=== PATIENT | female | born 1975 | race Caucasian/White ===

== ENCOUNTER 2019-05-21 17:38 | Emergency (ER) | payer OTHER ==
[2019-05-21] MEDS ORDERED: ACETAMINOPHEN 500 MG TAB ONE (18:21)
--- NOTE | 2019-05-21 18:28 | RAD REPORT ---
EXAM DESCRIPTION: RAD - Chest Single View - 05/21/2019 6:22 pm CLINICAL HISTORY: Chest pain COMPARISON: September 2010 TECHNIQUE: AP portable chest image was obtained 1606 hours . FINDINGS: Lung volumes are low. No peripheral mass or consolidation. Low lung volumes accentuates in terstitial pattern. No significant failure or volume overload. Heart and vasculature are normal. No m easurable pleural effusion and no pneumothorax. No acute bony abnormality seen. No acute aortic findi ngs suspected. IMPRESSION: No focal lung parenchymal process. Baseline interstitial pattern is accentuated by shallow inspiration potentially masking early interst itial edema or infiltrate.
[2019-05-21 18:45] LABS: Absolute Lymphocytes (CBC) 2.7 K/uL (0.7-4.9); Basophils % 0.4 % (0-1.3); Hematocrit 36.8 % (36.0-45.0); Lymphocytes % 38.7 % (15.3-44.8); MPV 8.8 fL (7.6-11.3); RBC Red Blood Cell Count 4.06 M/uL (3.86-4.86)
[2019-05-21 18:53] LABS: Protime INR 1.01
[2019-05-21 19:08] LABS: ALT/SGPT 17 U/L (12-78); AST/SGOT 12 U/L (15-37); Albumin 3.8 g/dL (3.4-5.0); Alkaline Phosphatase 73 U/L (45-117); BUN Blood Urea Nitrogen 13 mg/dL (7-18); Bicarbonate 27 mmol/L (21-32); Bilirubin Direct 0.1 mg/dL (0-0.2); Bilirubin Total 0.3 mg/dL (0.2-1.0); Glucose Level 103 mg/dL (74-106); Magnesium 2.2 mg/dL (1.8-2.4); NT PRO-BNP 34 pg/mL (<125); Potassium 3.8 mmol/L (3.5-5.1); Sodium Level 140 mmol/L (136-145); Troponin (Emerg Dept Use Only) < 0.02 ng/mL (0.0-0.045)
--- NOTE | 2019-05-21 21:04 | EDPHYS ---
Physician Documentation [facility] Name: Leonila Nur Age: 43 yrs Sex: Female : 1975 Arrival Date: 05/21/2019 Time: 17:39 Bed 18 Private MD: ED Physician Familia Phillips HPI: 05/21 18:55 This 43 yrs old Female presents to ER via Ambulatory with complaints of Chest ma2 Pain > 30 y/o. 18:55 The patient or guardian reports chest pain that is located primarily in the substernal ma2 area. Onset: gradually, 1 hour(s) ago. Associated signs and symptoms: Pertinent positives: chest pressure , Pertinent negatives: None. diaphoresis, headache, lightheadedness, nausea, shortness of breath, syncope, vomiting. The chest pain is described as aching. Severity of pain: At its worst the pain was moderate in the emergency department the pain is unchanged. The patient has not experienced similar symptoms in the past. ANESTHESIOLOGIST/PHYSICIAN: 21:14 LMP N/A - Irregular menses jd3 Historical: - Allergies: 17:48 No Known Allergies; la1 - Home Meds: 17:48 carvedilol 3.125 mg oral tab 1 tab 2 times per day [Active]; la1 - PMHx: 17:48 cardiomyopathy; la1 - PSHx: 17:48 ; la1 - Immunization history:: Adult Immunizations up to date. - Social history:: Smoking status: Patient/guardian denies using tobacco, Patient/guardian denies using alcohol, street drugs, The patient lives with family. - Ebola Screening: : No symptoms or risks identified at this time. - Family history:: not pertinent. ROS: 18:55 Constitutional: Negative for fever, chills, and weight loss, Eyes: Negative for injury, ma2 pain, redness, and discharge, ENT: Negative for injury, pain, and discharge, Neck: Negative for injury, pain, and swelling, Cardiovascular: Negative for chest pain, palpitations, and edema, Respiratory: Negative for shortness of breath, cough, wheezing, and pleuritic chest pain, Abdomen/GI: Negative for abdominal pain, nausea, diarrhea, and constipation, MS/Extremity: Negative for injury and deformity, Skin: Negative for injury, rash, and discoloration, Neuro: Negative for headache, weakness, numbness, tingling, and seizure, Psych: Negative for depression, anxiety, suicide ideation, homicidal ideation, and hallucinations. 18:55 All other systems are negative. Exam: 18:55 Constitutional: This is a well developed, well nourished patient who is awake, alert, ma2 and in no acute distress. Head/Face: Normocephalic, atraumatic. Eyes: Pupils equal round and reactive to light, extra-ocular motions intact. Lids and lashes normal. Conjunctiva and sclera are non-icteric and not injected. Cornea within normal limits. Periorbital areas with no swelling, redness, or edema. ENT: Nares patent. No nasal discharge, no septal abnormalities noted. Tympanic membranes are normal and external auditory canals are clear. Oropharynx with no redness, swelling, or masses, exudates, or evidence of obstruction, uvula midline. Mucous membranes moist. Neck: Trachea midline, no thyromegaly or masses palpated, and no cervical lymphadenopathy. Supple, full range of motion without nuchal rigidity, or vertebral point tenderness. No Meningismus. Chest/axilla: Normal chest wall appearance and motion. Nontender with no deformity. No lesions are appreciated. Cardiovascular: Regular rate and rhythm with a normal S1 and S2. No gallops, murmurs, or rubs. Normal PMI, no JVD. No pulse deficits. Respiratory: Lungs have equal breath sounds bilaterally, clear to auscultation and percussion. No rales, rhonchi or wheezes noted. No increased work of breathing, no retractions or nasal flaring. Abdomen/GI: Soft, non-tender, with normal bowel sounds. No distension or tympany. No guarding or rebound. No evidence of tenderness throughout. Vital Signs: 17:48 BP 150 / 87; Pulse 79; Resp 16; Temp 98.7; Pulse Ox 100% on R/A; Weight 84.82 kg; la1 Height 5 ft. 3 in. (160.02 cm); 20:41 BP 109 / 67; Pulse 72; Resp 17 S; Pulse Ox 99% on R/A; jd3 17:48 Body Mass Index 33.13 (84.82 kg, 160.02 cm) la1 MDM: 17:54 Patient medically screened. ma2 18:55 Differential diagnosis: abnormal EKG, anxiety, coronary artery disease chest wall pain, ma2 costochondritis, gastroesophageal reflux disease (GERD), pleurisy. 21:01 HEART Score: History: Slightly Suspicious (0), ECG: Age: < or = 45 years (0), Risk ma2 Factors: No Risk Factors Known (0), Troponin: < or = 1 x Normal Limit (0). Data reviewed: vital signs, nurses notes. ED course: LBB on EKG old, had related cardiomyopathy in past . 05/21 17:54 Order name: Basic Metabolic Panel; Complete Time: 19:42 ma2 05/21 17:54 Order name: CBC with Diff; Complete Time: 19:42 ma2 05/21 17:54 Order name: LFT's; Complete Time: 19:42 ma2 05/21 17:54 Order name: Magnesium; Complete Time: 19:42 ma2 05/21 17:54 Order name: NT PRO-BNP; Complete Time: 19:42 ma2 05/21 17:54 Order name: PT-INR; Complete Time: 19:42 ma2 05/21 17:54 Order name: Troponin (emerg Dept Use Only); Complete Time: 19:42 ma2 05/21 17:54 Order name: XRAY Chest (1 view); Complete Time: 19:42 ma2 05/21 17:54 Order name: EKG; Complete Time: 17:55 ma2 05/21 17:54 Order name: Cardiac monitoring; Complete Time: 18:00 ma2 05/21 17:54 Order name: EKG - Nurse/Tech; Complete Time: 18:00 ma2 05/21 17:54 Order name: IV Saline Lock; Complete Time: 19:04 ma2 05/21 19:55 Order name: Troponin (emerg Dept Use Only); Complete Time: 20:40 jd3 05/21 17:54 Order name: Labs collected and sent; Complete Time: 19:04 ma2 05/21 17:54 Order name: O2 Per Protocol; Complete Time: 18:00 ma2 05/21 17:54 Order name: O2 Sat Monitoring; Complete Time: 18:00 ma2 Administered Medications: 18:23 Drug: Tylenol 500 mg Route: PO; iw 19:20 Follow up: Response: No adverse reaction jd3 Disposition: 05/21/19 21:03 Discharged to Home. Impression: Chest pain, unspecified. - Condition is Stable. - Discharge Instructions: Nonspecific Chest Pain. - Prescriptions for Tylenol- Codeine #3 300-30 mg Oral Tablet - take 2 tablet by ORAL route every 6 hours As needed; 30 tablet. - Family Work Release, Medication Reconciliation Form, Thank You Letter, Antibiotic Education, Prescription Opioid Use form. - Follow up: Private Physician; When: Tomorrow; Reason: Continuance of care. Signatures: Dispatcher [employer] EDHeather Thompson RN RN Kodi Medrano RN RN la1 Clinton Boyd RN RN jd3 Familia Phillips MD MD ma2 Corrections: (The following items were deleted from the chart) 21:14 21:03 05/21/2019 21:03 Discharged to Home. Impression: Chest pain, unspecified. jd3 Condition is Stable. Forms are Medication Reconciliation Form, Thank You Letter, Antibiotic Education, Prescription Opioid Use. Follow up: Private Physician; When: Tomorrow; Reason: Continuance of care. ma2
--- NOTE | 2019-05-21 21:04 | ER ---
Nurse's Notes [facility] [place] Name: Leonila Nur Age: 43 yrs Sex: Female : 1975 Arrival Date: 05/21/2019 Time: 17:39 Bed 18 Private MD: Diagnosis: Chest pain, unspecified Presentation: 05/21 17:46 Presenting complaint: Patient states: I have been feeling off for about a month. i have la1 a hx of cardiomyopathy and see Dr. Romero and have been having palpitations. On my way here I had chest pain right in the middle of my chest and started feeling nauseous and sweating even though it wasn't hot. Transition of care: patient was not received from another setting of care. Onset of symptoms was May 21, 2019. Risk Assessment: Do you want to hurt yourself or someone else? Patient reports no desire to harm self or others. Initial Sepsis Screen: Does the patient meet any 2 criteria? No. Patient's initial sepsis screen is negative. Does the patient have a suspected source of infection? No. Patient's initial sepsis screen is negative. Care prior to arrival: None. 17:46 Method Of Arrival: Ambulatory la1 17:46 Acuity: VIKI 2 la1 ELECTRICAL SYSTEMS ENGINEER: 21:14 LMP N/A - Irregular menses jd3 Historical: - Allergies: 17:48 No Known Allergies; la1 - Home Meds: 17:48 carvedilol 3.125 mg oral tab 1 tab 2 times per day [Active]; la1 - PMHx: 17:48 cardiomyopathy; la1 - PSHx: 17:48 ; la1 - Immunization history:: Adult Immunizations up to date. - Social history:: Smoking status: Patient/guardian denies using tobacco, Patient/guardian denies using alcohol, street drugs, The patient lives with family. - Ebola Screening: : No symptoms or risks identified at this time. - Family history:: not pertinent. Screenin:00 Abuse screen: Denies threats or abuse. Denies injuries from another. Nutritional sg screening: No deficits noted. Tuberculosis screening: No symptoms or risk factors identified. Never had TB. Fall Risk None identified. Assessment: 18:00 Reassessment: Patient appears in no apparent distress at this time. General: Appears in sg no apparent distress. well groomed, well developed, well nourished, Behavior is calm, cooperative, appropriate for age. Pain: Complains of pain in chest Pain does not radiate. Quality of pain is described as aching, sharp, intermittent. Neuro: Level of Consciousness is awake, alert, obeys commands, Oriented to person, place, time, situation, Vehicle Maintenance Technician are equal bilaterally Moves all extremities. Full function Gait is steady, Speech is normal, Facial symmetry appears normal. Neuro: Reports headache in entire frontal area. Cardiovascular: Capillary refill is brisk in bilateral fingers Patient's skin is warm and dry. Chest pain is described as vague, quality is pressure. Respiratory: Airway is patent Respiratory effort is even, unlabored, Respiratory pattern is regular, symmetrical, Denies shortness of breath labored breathing. GI: No signs and/or symptoms were reported involving the gastrointestinal system. : No signs and/or symptoms were reported regarding the genitourinary system. EENT: No signs and/or symptoms were reported regarding the EENT system. Derm: Skin is pink, warm \T\ dry. Musculoskeletal: Circulation, motion, and sensation intact. Range of motion: intact in all extremities. 19:47 General: Appears in no apparent distress. comfortable, well groomed, Behavior is calm, jd3 cooperative, appropriate for age. Pain: Complains of pain in chest Quality of pain is described as pressure, Pain began suddenly. Neuro: Level of Consciousness is awake, alert, obeys commands, Oriented to person, place, time, situation. Cardiovascular: Capillary refill < 3 seconds Patient's skin is warm and dry. Respiratory: Airway is patent Respiratory effort is even, unlabored, Respiratory pattern is regular, symmetrical, Denies cough, shortness of breath labored breathing. GI: No signs and/or symptoms were reported involving the gastrointestinal system. : No signs and/or symptoms were reported regarding the genitourinary system. EENT: No signs and/or symptoms were reported regarding the EENT system. Derm: Skin is intact, Skin is dry, Skin is normal, Skin temperature is warm. Musculoskeletal: Circulation, motion, and sensation intact. Range of motion: intact in all extremities. 20:41 Reassessment: Patient appears in no apparent distress at this time. Patient and/or jd3 family updated on plan of care and expected duration. Pain level reassessed. Patient is alert, oriented x 3, equal unlabored respirations, skin warm/dry/pink. Patient states feeling better. 21:14 Reassessment: Patient appears in no apparent distress at this time. Patient and/or jd3 family updated on plan of care and expected duration. Pain level reassessed. Patient is alert, oriented x 3, equal unlabored respirations, skin warm/dry/pink. reported understanding of discharge instructions. Vital Signs: 17:48 BP 150 / 87; Pulse 79; Resp 16; Temp 98.7; Pulse Ox 100% on R/A; Weight 84.82 kg; la1 Height 5 ft. 3 in. (160.02 cm); 20:41 BP 109 / 67; Pulse 72; Resp 17 S; Pulse Ox 99% on R/A; jd3 17:48 Body Mass Index 33.13 (84.82 kg, 160.02 cm) la1 ED Course: 17:39 Patient arrived in ED. am2 17:47 Triage completed. la1 17:48 Arm band placed on left wrist. la1 17:54 Familia Phillips MD is Attending Physician. ma2 18:00 EKG done, by ED staff, reviewed by Familia Phillips MD. iw 18:23 XRAY Chest (1 view) In Process Unspecified. EDMS 18:30 No provider procedures requiring assistance completed. Initial lab(s) drawn, by me, sg sent to lab. Inserted saline lock: 22 gauge in right antecubital area, using aseptic technique. Blood collected. Patient maintains SpO2 saturation greater than 95% on room air. 18:35 Grey Billingsley, RN is Primary Nurse. sg 19:00 bus driver/monitor on. Pulse ox on. NIBP on. jd3 19:49 Patient has correct armband on for positive identification. Placed in gown. Bed in low jd3 position. Call light in reach. Side rails up X 1. Adult w/ patient. 20:02 Troponin (emerg Dept Use Only) Sent. jd3 21:13 IV discontinued, intact, bleeding controlled, No redness/swelling at site. Pressure jd3 dressing applied. Administered Medications: 18:23 Drug: Tylenol 500 mg Route: PO; iw 19:20 Follow up: Response: No adverse reaction jd3 Outcome: 21:03 Discharge ordered by . ma2 21:13 Discharged to home ambulatory, with family. jd3 21:13 Condition: stable 21:13 Discharge instructions given to patient, family, Instructed on discharge instructions, follow up and referral plans. medication usage, Demonstrated understanding of instructions, follow-up care, medications, Prescriptions given X 1. 21:14 Patient left the ED. jd3 Signatures: Dispatcher [employer] EDMS Grey Billingsley RN RN sg Williams, Irene, RN RN iw Attema, Lee, RN RN la1 Moreno, Amanda am2 Davies, Jonathon, RN RN jd3 Alzahri, Mohammad, MD MD ma2
[2019-05-21 22:57] VITALS: BP 109/67; O2SAT 99
[2019-05-21 22:58] VITALS: TEMP 98.7
--- NOTE | 2019-05-22 11:03 | EKG ---
Test Date: 2019-05-21 Test Time: 18:00:29 Food Cashier: SWG MEASUREMENT RESULTS: Intervals: Rate: 67 MT: 154 QRSD: 136 QT: 432 QTc: 456 [place]: P: 38 MT: 154 QRS: 13 T: 20 INTERPRETIVE STATEMENTS: Normal sinus rhythm Left bundle branch block Abnormal ECG Compared to ECG 09/26/2010 13:08:12 Left bundle-branch block now present Intraventricular conduction delay no longer present ST (T wave) deviation no longer present Electronically Signed On 05-22-19 11:02:43 CDT by Yunior Romero
== END 2019-05-21 21:14 | disposition home or self-care (01) ==
LOC: ER 17:38
DX: R07.9 Chest pain, unspecified (principal)
CPT/HCPCS: 36415; 71045; 80048; 80076; 83735; 83880; 84484; 85025; 85610; 93005; 99285

== ENCOUNTER 2021-01-01 11:02 | Day surgery (SDC) | payer BC ==
--- NOTE | 2020-12-31 12:41 | RAD REPORT ---
EXAM DESCRIPTION: Darrell Butler And Juan R (2 Views)12/31/2020 12:34 pm CLINICAL HISTORY: Preop for cardiac catheterization COMPARISON: November 2020 FINDINGS: The lungs appear clear of acute infiltrate. The heart is normal size IMPRESSION: No acute abnormalities displayed
[2020-12-31 12:58] LABS: Absolute Lymphocytes (CBC) 2.4 K/uL (0.7-4.9); Basophils % 0.4 % (0-1.3); Hematocrit 39.4 % (36.0-45.0); Lymphocytes % 34.2 % (15.3-44.8); MPV 8.5 fL (7.6-11.3); RBC Red Blood Cell Count 4.37 M/uL (3.86-4.86)
[2020-12-31 13:01] LABS: Protime INR 1.08
[2020-12-31 13:25] LABS: Potassium 3.6 mmol/L (3.5-5.1)
[2021-01-01] MEDS ORDERED: NA CHLORIDE 0.9% 500 ML ONE (11:34)
[2021-01-01 11:48] VITALS: TEMP 97.3
[2021-01-01] MEDS ORDERED: HEPA 1000U/500MLS 2,000 UNIT/1,000 ML BAG IV ONE (12:09)
[2021-01-01] MEDS ORDERED: FENTANYL CITR 100 MCG/2 ML ONE (12:35)
[2021-01-01] MEDS ORDERED: MIDAZOLAM HCL 2 MG/2 ML INJ ONE (12:35)
[2021-01-01] MEDS ORDERED: HEPARIN 5000 UNIT/ML 1 ML VIAL ONE (12:35)
[2021-01-01] MEDS ORDERED: VERAPAMIL HCL 10 MG/4 ML VIAL IV ONE (12:36)
[2021-01-01] MEDS ORDERED: NITROGLYCERIN 100 MCG/ML SYR (for cath lab use only) IV ONE (12:36)
[2021-01-01] MEDS ORDERED: HEPARIN 10,000 UNIT/10 ML VIAL IV ONE (12:36)
[2021-01-01] MEDS ORDERED: ATROPINE SULF 1 MG/10 ML SYR IV ONE (12:36)
[2021-01-01 14:36] VITALS: BP 102/63; O2SAT 99
--- NOTE | 2021-01-01 22:20 | OP ---
Date of Procedure: 01/01/2021 Surgeon: ALPHONSE BOCANEGRA Procedure Performed: Selective coronary angiogram. Indication: Chest pain with abnormal stress test. Access: Right radial artery 6-Kosovan closed with TR band. Complications: None. Bleeding: Less than 10 mL. Description Of Procedure: After risks, benefits, and alternatives were explained, the patient agreed to the procedure and signed informed consent. The patient was brought into the cardiac catheterizat ion laboratory, prepped and draped in usual sterile fashion. Then, we accessed the right radial nora ry using pediatric micropuncture kit, placed a 6-Kosovan slender sheath and took a 5-Kosovan [place] 4.0 catheter into the aortic root, engaged left main and right coronary artery, took standard views. The n, we removed the catheter and the sheath and placed TR band with good hemostasis. Findings: 1.Left main; large and normal. 2.LAD; large and normal. 3.Left circumflex; moderate size and normal. 4.RCA; large, dominant and normal. Conclusion: Normal coronary arteries. Plan: Discharge home once criteria are met and medical management and evaluate for other causes of c hest pain. SR/MODL Voice ID: [id number] Report ID: [id number]
== END 2021-01-01 14:52 | disposition home or self-care (01) ==
LOC: CCL 11:02
PROVIDERS: ATTEND Internal Medicine
DX: R07.9 Chest pain, unspecified (principal); I10 Essential (primary) hypertension; Z20.822 Contact with and (suspected) exposure to COVID-19
CPT/HCPCS: 85025; 80048; 36415; 81025; 85610; 85730; 71046; 93454; U0003; C1893; J1644 ×2; J2250; J3010; J7040